=== PATIENT | male | born 1980 | race Caucasian/White ===

== ENCOUNTER 2022-01-19 00:59 | Day surgery (SDC) | payer BC, SELFPAY ==
[2022-01-05 13:48] VITALS: BMI 26.6
[2022-01-19 11:54] VITALS: BP 131/74; PULSE 116; RESP 20; TEMP 36.6; O2SAT 98
[2022-01-19] MEDS: LACTATED RINGERS 1,000 ML 150 ML IV CONT (11:59)
--- NOTE | 2022-01-19 12:19 | PM.HPGS ---
History of Present Illness History of Present Illness Consent: Risks, benefits, and alternatives have been discussed and questions answered. Patient agrees to proceed with procedure. Chief complaint: family hx colon ca Narrative: Perfecto Powell is a 41 year old male Referred for colon cancer screening. His mother was recently diagnosed with colon cancer. Review of Systems Review of Systems: All systems reviewed & are unremarkable except as noted in HPI and below PMFSH Past Medical History Medical History History of concussion History of neck injury Surgical History Surgical History History of elbow surgery History of umbilical hernia repair Family History Family History Mother Carcinoma of colon Grandparent Hypertension Diabetes mellitus Sibling Diabetes mellitus Social History Social History Smoking packs per day: 1 Smoking cigarettes per day: 20.0 Years smoked: 24 Smoking pack-years: 24.00 Smoking status: Current every day smoker Tobacco type: cigarettes Second hand tobacco smoke exposure: Yes Alcohol intake: current Alcohol use details: once per month Substance use: never Living arrangements: with family Gender identity (if verbalized by the patient): Male Spiritual care concerns: No Meds Home Medications and Allergies Home Medications Medication Instructions Recorded Confirmed Type cholecalciferol (vitamin D3) 1,250 1,250 mcg PO .COMPLEX #8 cap 12/25/21 01/19/22 Rx mcg (50,000 unit) capsule terbinafine HCl 250 mg PO DAILY 01/05/22 01/19/22 History Allergies Allergy/AdvReac Type Severity Reaction Status Date / Time No Known Allergies Allergy Unverified 01/19/22 11:53 Vital Signs Vital Signs - 24 hr 01/19/22 11:54 Temperature 36.6 C Pulse Rate 116 H Respiratory Rate 20 Blood Pressure 131/74 Pulse Oximetry 98 Exam Resp: Auscultation: clear to auscultation bilaterally Cardio: Rate: regular rate Rhythm: regular rhythm GI: GI Palp: Yes Soft to palpation and No Tenderness to palpation present (GI) Assessment and Plan Assessment and plan (1) Colon cancer screening: Code(s): Z12.11 - Encounter for screening for malignant neoplasm of colon Status: Acute Assessment and Plan: Colonoscopy with possible biopsy or polypectomy or cautery or injection of substances. (2) Family history of colon cancer in mother: Code(s): Z80.0 - Family history of malignant neoplasm of digestive organs Status: Acute
--- NOTE | 2022-01-19 12:28 | P.PNAN_ITS ---
Anes - Initial Pre Proc Eval Procedure: Operation Date: 01/19/22 13:00 Proposed Procedures p Screening Colonoscopy - Milo Etienne MD Date/Time: 01/19/22 12:28 Surgeon: Milo Etienne MD Pre Op Diagnosis: family hx colon ca Patient Data Age: 41 Gender: M Height: 1.83 m Weight: 84.9 kg Last Vital Signs Temp 97.8 F 01/19/22 11:54 Pulse 116 H 01/19/22 11:54 Resp 20 01/19/22 11:54 BP 131/74 01/19/22 11:54 Pulse Ox 98 01/19/22 11:54 Allergies Allergy/AdvReac Type Severity Reaction Status Date / Time No Known Allergies Allergy Unverified 01/19/22 11:53 Home Medications Medication Instructions Recorded Confirmed Type cholecalciferol (vitamin D3) 1,250 1,250 mcg PO .COMPLEX #8 cap 12/25/21 01/19/22 Rx mcg (50,000 unit) capsule terbinafine HCl 250 mg PO DAILY 01/05/22 01/19/22 History Patient hx anesthesia problems: none Family hx anesthesia problems: none Results Review: All pre-operative results and documents have been reviewed as part of the pre-operative evaluation. [facility] Past Medical History Medical History History of concussion History of neck injury Surgical History Surgical History History of elbow surgery History of umbilical hernia repair Family History Family History Mother Carcinoma of colon Grandparent Hypertension Diabetes mellitus Sibling Diabetes mellitus Social History Social History Smoking packs per day: 1 Smoking cigarettes per day: 20.0 Years smoked: 24 Smoking pack-years: 24.00 Smoking status: Current every day smoker Tobacco type: cigarettes Second hand tobacco smoke exposure: Yes Alcohol intake: current Alcohol use details: once per month Substance use: never Living arrangements: with family Gender identity (if verbalized by the patient): Male Spiritual care concerns: No Anes - Eval Final PreProcedure Day of Procedure 01/19/22 12:28 Patient weight: normal Heart: regular rate and rhythm Lungs: clear to auscultation Airway: Mallampati scale class II Neurological: alert and oriented Last oral intake: >/= 8 hours ASA classification: II Emergent: no Anesthetic plan: proceed Anesthesia type and monitoring: general GIVS and standard monitoring Results Review: All pre-operative results and documents have been reviewed as part of the pre-operative evaluation. Informed Consent: The patient's anesthetic plan and its attendant risks and benefits were discussed with the patient/family/POA. Questions were solicited and answers provided to the satisfaction of the patient/family/POA.
[2022-01-19 13:17] VITALS: BP 106/72; PULSE 86; RESP 20; O2SAT 96
[2022-01-19 13:27] VITALS: BP 114/79; PULSE 78; RESP 18; O2SAT 99
[2022-01-19 13:37] VITALS: BP 139/90; PULSE 74; RESP 20; O2SAT 99
== END 2022-01-19 13:50 | disposition home or self-care (01) ==
PROVIDERS: PCP Internal Medicine; Referring Provider Nurse Practitioner; Visit Provider Internal Medicine Gastroenterology
PROC: 0DJD8ZZ Inspection of Lower Intestinal Tract, Via Natural or Artificial Opening Endoscopic (ICD-10-PCS; CPT 45378; principal; 2022-01-19 13:00)
DX: Z12.11 Encounter for screening for malignant neoplasm of colon (principal); K57.30 Diverticulosis of large intestine without perforation or abscess without bleeding; K62.1 Rectal polyp; Z80.0 Family history of malignant neoplasm of digestive organs; F17.210 Nicotine dependence, cigarettes, uncomplicated
CPT/HCPCS: 45380; 88305; J2704; J7120

== ENCOUNTER 2023-09-14 12:36 | Outpatient (CLI) | payer OTHER, MEDICAID, SELFPAY ==
--- NOTE | ~2023-09-14 | XR_ITS ---
EXAMINATION: XR elbow LT min 3V DATE: 09/14/2023 13:26 INDICATION: Lateral epicondylitis at the left elbow TECHNIQUE: Anteroposterior, two oblique and lateral views of the left elbow were obtained. COMPARISON: None. FINDINGS: Alignment is normal. No acute fracture. There is a corticated ossicle along the distal margin of the medial epicondyle most likely heterotopic ossification related to chronic injury, likely of the ulnar collateral ligament. Joint spaces are normal. No cortical erosions. Soft tissues are unremarkable wi th no elbow joint effusion. IMPRESSION: 1. 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 No elbow joint effusion or acute osseous abnormality. Reviewed, dictated and finalized at location A. D CROP FARM WORKER IMPRESSION: 1. Heterotopic ossicle along the medial epicondyle suggesting sequela of chroni c ulnar collateral ligament tear. No elbow joint effusion or acute osseous abno rmality.
--- NOTE | ~2023-09-14 | XR_ITS ---
EXAMINATION: XR hip LT 2V w AP pelvis DATE: 09/14/2023 13:26 INDICATION: Left hip pain. TECHNIQUE: An anteroposterior view of the pelvis and 2 views of left hip were obtained. COMPARISON: Left hip radiographs 11/16/2016 FINDINGS: Bone alignment is normal. No fracture. There is decreased femoral head/neck offset bilatera lly, consistent with femoral acetabular impingement. There is mild right hip osteoarthritis and moder ate left hip osteoarthritis. IMPRESSION: 1. Mild right hip osteoarthritis and moderate left hip osteoarthritis. Reviewed, dictated and finalized at location E. MACHINE TENDER
--- NOTE | ~2023-09-14 | XR_ITS ---
EXAMINATION: XR hand LT min 3V, XR finger 1st LT min 2V DATE: 09/14/2023 13:26 INDICATION: Left thumb and hand pain. TECHNIQUE: 1. Posteroanterior, oblique and lateral views of the affected hand were obtained. 2. Dorsal palmar, lateral and 2 oblique views of the left thumb were obtained. COMPARISON: None. FINDINGS: Moderate osteoarthritis at the first carpometacarpal joint with dorsal/radial subluxation of the base of the first metacarpal relative to the trapezium. Otherwise normal alignment at the left hand. Kush tional mild polyarticular osteoarthritis at the distal radioulnar, first-third metacarpophalangeal an d multiple interphalangeal joints with distal predominance. No erosions to suggest inflammatory arthr itis. Soft tissues are unremarkable. IMPRESSION: 1. Polyarticular osteoarthritis at the left hand and wrist, moderate at the first metacarpophalangeal joint and otherwise mild. Reviewed, dictated and finalized at location A. OSOFT CRM DEVELOPER IMPRESSION: 1. Polyarticular osteoarthritis at the left hand and wrist, moderate at the fir st metacarpophalangeal joint and otherwise mild.
[2023-09-14 13:49] LABS: Basophils Absolute Auto 0.1 K/mm3 (0.0-0.1); Basophils Percent Auto 1.2 % (0.2-1.2); Eosinophils Absolute Auto 0.2 K/mm3 (0-0.3); Eosinophils Percent Auto 3.5 % (0-4.4); Hematocrit 43.1 % (42.0-52.0); Hemoglobin 14.3 g/dL (14.0-18.0); Immature Granulocyte Absolute 0.02 K/mm3 (0.00-0.031); Immature Granulocyte Percent A 0.3 % (0-0.5); Lymphocytes Absolute Auto 1.96 K/mm3 (0.9-3.2); Lymphocytes Percent Auto 33.9 % (18.3-44.2); Mean Corpuscular HGB Conc 33.2 g/dl (32-36); Mean Corpuscular Hemoglobin 32.5 pg (26-34); Mean Platelet Volume 9.6 fl (7.4-10.4); Monocytes Absolute Auto 0.5 K/mm3 (0.1-0.6); Neutrophils Percent Auto 52.1 % (45.5-73.1); Platelet Count Result 264 k/mm3 (150-375); Red Cell Distribution Width 13.2 % (11.5-14.5); White Blood Count 5.8 K/mm3 (4.5-10.0)
[2023-09-14 14:07] LABS: Alanine Aminotransferase 49 U/L (6-50); Albumin Level 4.5 g/dL (3.5-5.1); Alkaline Phosphatase 80 U/L (38-126); Anion Gap 8 mmol/L (8-16); Aspartate Amino Transferase 36 U/L (17-59); Bilirubin,Total 0.4 mg/dL (0.2-1.3); Blood Urea Nitrogen 14 mg/dL (9-20); Calcium 9.4 mg/dL (8.4-10.2); Carbon Dioxide 26 mmol/L (22-30); Chloride 104 mmol/L (98-107); Cholesterol 185 mg/dL (0-200); Estimated Glomerular Filt Rate > 60; Glucose 82 mg/dL (65-110); HDL Direct 87 mg/dL; Potassium 4.3 mmol/L (3.4-5.0); Sodium 138 mmol/L (137-145); Triglycerides 113 mg/dL (<150)
[2023-09-14 14:16] LABS: LDL Cholesterol Direct 72 mg/dL
[2023-09-14 14:26] LABS: Vitamin D 25 Hydroxy 32.5 ng/mL
[2023-09-14 14:35] LABS: Prostate Specific Antigen 0.2 ng/mL (< OR = 4.0)
== END 2023-09-14 12:37 | disposition home or self-care (01) ==
PROVIDERS: PCP Family Medicine; Visit Provider Family Medicine
DX: Z00.00 Encounter for general adult medical examination without abnormal findings (principal); M77.10 Lateral epicondylitis, unspecified elbow; M16.12 Unilateral primary osteoarthritis, left hip; M16.11 Unilateral primary osteoarthritis, right hip; M19.042 Primary osteoarthritis, left hand; N40.0 Benign prostatic hyperplasia without lower urinary tract symptoms; E55.9 Vitamin D deficiency, unspecified
CPT/HCPCS: 36415; 73080; 73130; 73140; 73502; 80053; 80061; 82306; 84153; 85025

== ENCOUNTER 2025-09-19 12:44 | Outpatient (CLI) | payer OTHER, SELFPAY ==
--- NOTE | 2025-09-19 | ECG_ITS ---
Test Date: 2025-09-19 13:26:39 Measurements Intervals [place] Rate: 63 P: 76 W[place]: 120 QRS: 61 QRSD: 115 T: 56 QT: 391 QTc: 403 Interpretive Statements SINUS RHYTHM INCOMPLETE RIGHT BUNDLE BRANCH BLOCK BASELINE ARTIFACT- I, II, AVR BORDERLINE ECG No previous ECG available for comparison Electronically Signed On 09-19-2025 21:22:20 TOOL CRIB SUPERVISOR by Zain Weiss D.O.
--- NOTE | ~2025-09-19 | XR_ITS ---
EXAMINATION: XR chest 2V 09/19/2025 13:11 INDICATION: Preprocedural examination PROCEDURE: 2 view chest COMPARISON: 11/16/2016 FINDINGS: The lungs are clear. The cardiomediastinal silhouette is within normal limits. There are no pleural effusions. There is no pneumothorax suspected. IMPRESSION: 1: NO ACUTE CARDIOPULMONARY DISEASE. Reviewed, dictated and finalized at location O. D SUPPORT REPRESENTATIVE
--- OUTSIDE RECORDS SUMMARY | 2025-09-19 12:49 | XMS_ITS | Patient Health Record ---
Author Organization [facility] Address [address] [place] [address] Phone [phone] Care Team Providers Care Lead Scientist Name Role Phone Yosef Willis M.D. Primary Care Provider [facility], Adult NICO Unavailabl e [phone] Reason For Referral No Information Medications Medication SIG (Take, Route, Frequency, Duration) Notes Start Date End Date Diagnosis (ICD Code) Status Gabapentin 300 MG Capsule 1 capsule Orally Three times a day 05/17/2017 Cervicalgia (ICD_10 - M54.2) Active Vitamin D 00007 UNIT Capsule 1 capsule Orally once a week Active Social History Sex Observation Social History Observation Description Sex Observation Male Social History Primary Social History Social Info Question Answer Notes Living Arrangement Living Arrangement: Dependent Gabino gamino Living with: Parent(s) Is this a supportive environment? Yes Tobacco Use - do not use Tobacco Use: Current Type of Tobacco: Cigarettes Quanity per day: .5 pack to 1 pack Duration: 15 Years Quit Attempts in the past: No Interested in quitting: Yes Employment Status Employment Status: Unemployed Illicit Substance Usage Illicit Substance Usage: No Alcohol Use Alcohol Use Frequency: Monthly or less Plan Of Treatment Pending Test Test Name Order Date Xray : Spines, cervical 4 views 05/17/20 17 Insurance Providers Payer Name Payer Address Payer Phone Subscriber Number Group Number Insured Name Patient Relationship to Insured Coverage Start Date Coverage End Date [facility] Att Claims Department [address] [facility] [place] [address] [id number] Perfecto Powell Self - patient is the insured 7 Medical (General) History Medical History History ICD Code neck pain back pain Surgical History Surgery Date(Month/Year) right elbow 1996 right wrist 1997
--- OUTSIDE RECORDS SUMMARY | 2025-09-19 12:49 | XMS_ITS | Clinical Summary ---
Author Organization [facility] Address [address] [place] [address] Care Team Providers Care Fish Flipper Name Role Phone Albaro Wolfe DO Primary Care Provider [phone] Source Comments [facility],non-owned Affiliates and Associated Physician Practices is amultiple site organization consisting of ambulatory clinics and hospital sitesin [place], [place], [place] and [place]. This disclosure is being madepursuant to the Care Everywhere program and may not contain all information available regarding this patient. Last updated 18.[facility] Allergies No known active allergies Medications * Be aware that medications may not be up to date on this document. Alwaysverify current medications with the patient. 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 Gender Identity Not on file Sexual Orientation Not on file Last Filed Vital Signs Vital Sign Reading Time Taken Comments Blood Pressure 127/90 01/21/2020 11:15 PM CDT Pulse 73 01/21/2020 11:14 PM CDT Temperature 36.8 C (98.3 F) 01/21/2020 6:53 PM CDT Respiratory Rate 16 01/21/2020 11:14 PM CDT Oxygen Saturation 97% 01/21/2020 11:15 PM CDT Inhaled Oxygen Concentration - - Weight 81.6 kg (180 lb) 01/21/2020 6:53 PM CDT Height 182.9 cm (6') 01/21/2020 6:53 PM CDT Body Mass Index 24.41 01/21/2020 6:53 PM CDT Plan of Treatment Health Maintenance Due Date Last Done Comments COLOGUARD (AGES 45-75) - COL ON CA SCREENING 1979 COLON MONITORING 1979 COLONOSCOPY - COLON CA SCREENING 1979 CT COLONOGRAPHY - COLON CA SCREENING 1979 Colorectal Cancer Screening 1979 FIT - COLON CA SCREENING 1979 FLEX SIG - COLON CA SCREENING 1979 LIPID TESTING 1979 HIV SCREENING 1994 HEPATITIS C SCREENING 01/23/1997 DTAP/TDAP/TD VACCINES (1 - Tdap) 1998 HEPATITIS B VACCINE (1 of 3 - 19+ 3-dose series) 1998 DEPRESSION SCREENING 09/20/2024 COVID-19 VACCINE (1 - 2024-2 6 season) 2025 INFLUENZA VACCINE (#1) 2025 ZOSTER VACCINE (1 of 2) 2029 HIB VACCINE Aged Out No longer eligi ble based on patient's age to complete this topic HPV VACCINE Aged Out No longer eligi ble based on patient's age to complete this topic MENINGOCOCCAL (Group B) VACC INE SHARED DECISION-MAKING Aged Out No longer eligibl e based on patient's age to complete this topic MENINGOCOCCAL GROUPS A/C/Y/W VACCINE Aged Out No longer eligible b ased on patient's age to complete this topic PNEUMOCOCCAL VACCINE Aged Out No long er eligible based on patient's age to complete this topic Insurance [facility] * Guarantor: JUDI LOPEZ Account Type Relation to Patient Date of Phone Billing Address Personal/Family [phone] Care Teams Fish Flipper Relationship Specialty Start Date End Date Albaro Wolfe DO [address] [address] PCP - General 01/23/22
[2025-09-19 13:21] LABS: Hematocrit 43.1 % (42.0-52.0); Hemoglobin 14.7 g/dL (14.0-18.0); Mean Corpuscular HGB Conc 34.1 g/dl (32-36); Mean Corpuscular Hemoglobin 31.3 pg (26-34); Mean Corpuscular Volume 91.9 fl (80-100); Platelet Count Result 307 k/mm3 (150-375); Red Blood Count 4.69 M/mm3 (4.6-6.20); White Blood Count 7.2 K/mm3 (4.5-10.0)
[2025-09-19 13:41] LABS: Alanine Aminotransferase 41 U/L (6-50); Albumin Level 4.6 g/dL (3.5-5.1); Alkaline Phosphatase 113 U/L (38-126); Anion Gap 8 mmol/L (4-12); Aspartate Amino Transferase 41 U/L (17-59); Bilirubin,Total 0.7 mg/dL (0.2-1.3); Blood Urea Nitrogen 16 mg/dL (9-20); Calcium 9.5 mg/dL (8.4-10.2); Carbon Dioxide 28 mmol/L (22-30); Chloride 104 mmol/L (98-107); Estimated Glomerular Filt Rate > 60; Glucose 101 mg/dL (65-110); Potassium 4.2 mmol/L (3.4-5.0); Sodium 140 mmol/L (137-145); Total Protein 7.8 g/dL (6.3-8.2)
[2025-09-19 14:01] LABS: Hemoglobin A1C 5.2 % (<5.7)
== END 2025-09-19 12:45 | disposition home or self-care (01) ==
PROVIDERS: PCP Family Medicine; Visit Provider Orthopaedic Surgery
DX: Z01.812 Encounter for preprocedural laboratory examination (principal); Z01.818 Encounter for other preprocedural examination; Z01.810 Encounter for preprocedural cardiovascular examination; Z01.811 Encounter for preprocedural respiratory examination; M16.12 Unilateral primary osteoarthritis, left hip
CPT/HCPCS: 36415; 71046; 80053; 83036; 85027; 93005